=== PATIENT | female | born 1960 | race Caucasian/White ===

== ENCOUNTER 2016-10-19 09:42 | Emergency (ER) | payer MEDICARE, MEDICAID ==
--- NOTE | 2016-10-19 10:41 | RAD ---
KNEE- RIGHT 4 OR MORE VIEWS COMPARISON: None HISTORY: Yesterday afternoon, twisted right knee and felt pain and a pop. Right knee pain and swelling since. VIEWS: Right knee AP, internal rotation, external rotation, and lateral FINDINGS: Bones: Normal density. No fracture. Minimal osteophytes at the medial joint margin. Joints: Mild joint effusion. Soft tissue: Normal. IMPRESSION: Mild joint effusion after twisting injury, suspicious for internal derangement of the knee. Minimal osteoarthritis.
== END 2016-10-19 11:37 | disposition home or self-care (01) ==
LOC: ED 09:42
DX: S89.91XA Unspecified injury of right lower leg, initial encounter (principal); M25.461 Effusion, right knee; E11.9 Type 2 diabetes mellitus without complications; Z79.4 Long term (current) use of insulin; X50.0XXA Overexertion from strenuous movement or load, initial encounter; Y92.9 Unspecified place or not applicable